=== PATIENT | female | born 1960 | race Caucasian/White ===

== ENCOUNTER 2020-06-28 13:25 | Outpatient (CLI) | payer OTHER, SELFPAY ==
[~2020-06-28] VITALS: Ht 162.6 cm; Wt 45.8 kg
[~2020-06-28 13:25] MED LIST: ALBU17IN INH; BETA0.12 TOP; CALC1TAB21 PO; MELATAB3 PO; MULTCAP PO; SYMB16INH INH; VITA50005 PO
[2020-06-28 13:30] VITALS: BP 163/80
[2020-06-28] MEDS ORDERED: ZOLEDRONIC ACID 5 MG in IV 1 EA IV ONE (13:30)
[2020-06-28] MEDS ORDERED: ZOLEDRONIC ACID 5 MG 100ML IVBAG (RECLAST)(J3489 PER 1MG) As Ordered ONE (13:32)
[2020-06-28] MEDS ORDERED: VITAMIN D PO (14:10)
[2020-06-28] MEDS ORDERED: LASI20TA3 PO (14:11)
[2020-06-28] MEDS ORDERED: POTA1TAB14 PO (14:11)
[2020-06-28] MEDS ORDERED: HYDR-4468 PO ×2 (14:15→14:16)
[2020-06-28 15:00] VITALS: BP 154/70
== END 2020-06-28 15:05 | disposition home or self-care (01) ==
LOC: M INFU 13:25
PROVIDERS: ATTEND Internal Medicine Endocrinology, Diabetes & Metabolism
DX: M81.0 Age-related osteoporosis without current pathological fracture (principal)
CPT/HCPCS: 96365; J3489